=== PATIENT | female | born 1950 | race Caucasian/White ===

== ENCOUNTER → 2019-04-14 13:46 | Outpatient (CLI) | payer OTHER, SELFPAY ==
--- NOTE | 2019-04-14 13:54 | BD_ITS ---
STUDY: DUAL ENERGY X-RAY ABSORPTIOMETRY / DXA REASON FOR EXAM: Female, 68 years old. 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 COMPARISON: None. FINDINGS: Lumbar Spine (L1-L4): g/cm2 (0.860) / T-score (-2.7) / Z-score (-1.1) Findings are suggestive of osteoporosis with a high fracture risk. Left Femur Total: g/cm2 (0.759) / T-score (-2.0) / Z-score (-0.7) Left Femoral Neck: g/cm2 (0.780) / T-score (-1.9) / Z-score (-0.3) Right Femur Total: g/cm2 (0.773) / T-score (-1.9) / Z-score (-0.6) Right Femoral Neck: g/cm2 (0.751) / T-score (-2.1) / Z-score (-0.5) BD/Dexa Bone Density Study IMPRESSION: The patient is considered osteoporotic as outlined below according to World Richard Organization (WHO) criteria with a high fracture risk. Reference Information: The T-score is the number of standard deviations above or below the standard which is normal for young adults at their peak bone mineral density. The World Health Organization (WHO) interprets the T-scores as follows: Above -1 Normal bone density Between -1 and -2.5 Osteopenia Equal to / or below -2.5 Osteoporosis As a practical clinical guideline, osteopenia may be graded as follows: Mild -1 through -1.5 Moderate -1.6 through -2.0 Severe -2.1 through -2.4 The Z-score is the number of standard deviations above or below age-matched controls. A Z-score of less than -1.5 would be considered abnormal. References: 1. NIH Osteoporosis and Related Bone Diseases http://www.osteo.org 2. International Society for Clinical Densitometry http://www.iscd.org 3. National Osteoporosis Foundation http://www.nof.org Electronically Signed: Roman Jerome, at 15:06 EST , Service support ,
== END ==
PROVIDERS: PCP Internal Medicine; Referring Provider Internal Medicine; Visit Provider Internal Medicine
DX: Z78.0 Asymptomatic menopausal state (principal); M81.0 Age-related osteoporosis without current pathological fracture
CPT/HCPCS: 77080

== ENCOUNTER 2020-05-11 14:46 | Outpatient (RCR) | payer MEDICARE, SELFPAY | END 2020-05-11 23:59 | LOC: IMMUN 14:46 | PROVIDERS: PCP Internal Medicine; Visit Provider Family Medicine | DX: Z23 Encounter for immunization (principal) | CPT/HCPCS: 0011A; 0012A; 91301 ==

== ENCOUNTER → 2020-05-26 11:02 | Outpatient (CLI) | payer MEDICARE, OTHER, SELFPAY ==
--- NOTE | 2020-05-26 11:04 | CDU_ITS ---
Reason For Study: Bilateral carotid bruits Rt. Velocities/BP Lt. Velocities/BP Prox CCA 83.9/21.3 cm/sec. Prox CCA 90/23.7 cm/sec. Mid CCA 79.9/20 cm/sec. Mid CCA 74.1/15.1 cm/sec. Dist CCA 77.3/18.6 cm/sec. Dist CCA 76.5/18.8 cm/sec. Prox ICA 42.1/10.2 cm/sec. Prox ICA 59.3/13.9 cm/sec. Mid ICA 72.8/24.5 cm/sec. Mid ICA 75.3/22.5 cm/sec. Dist ICA 68.4/20.1 cm/sec. Dist ICA 85.1/24.9 cm/sec. Rt. ICA/CCA = 0.9. Lt. ICA/CCA = 1.11. Prox ECA 94.3/13.4 cm/sec. Prox ECA 87.6/11.4 cm/sec. Rt. Vert. 50.9/6.4 cm/sec. Lt. Vert. 40.9/11.6 cm/sec. Right Extracranial There is intimal thickening but no significant atherosclerotic plaque noted in the right common carotid artery. There is intimal thickening but no significant atherosclerotic plaque noted in the right internal carotid artery. There is intimal thickening but no significant atherosclerotic plaque noted in the right external carotid artery. Antegrade flow is noted in the right vertebral artery. Left Extracranial There is intimal thickening but no significant atherosclerotic plaque noted in the left common carotid artery. There is intimal thickening but no significant atherosclerotic plaque noted in the left internal carotid artery. There is intimal thickening but no significant atherosclerotic plaque noted in the left external carotid artery. Antegrade flow is noted in the left vertebral artery. Procedure Carotid Duplex [id number]. This is a Carotid Duplex examination using B-mode, color flow and specral Doppler. Exam performed in department. Interpretation Summary Intimal thickening right proximal internal carotid artery with less than 50% stenosis Less than 50% stenosis right external carotid artery Intimal thickening left proximal internal carotid artery with less than 50% stenosis Less than 50% stenosis left external carotid artery Patent and antegrade vertebrals bilaterally No change from the previous examination of February 08, 2014 Ordering Physician: Cassidy De Referring Physician: Cassidy De Performed By: Margot Martines RVT
== END ==
LOC: OPBI 11:03 → CVS 11:03
PROVIDERS: PCP Internal Medicine; Referring Provider Internal Medicine; Visit Provider Internal Medicine
DX: Z12.31 Encounter for screening mammogram for malignant neoplasm of breast (principal); R09.89 Other specified symptoms and signs involving the circulatory and respiratory systems
CPT/HCPCS: 93880

== ENCOUNTER → 2020-07-11 10:37 | Outpatient (CLI) | payer MEDICARE, OTHER, SELFPAY ==
--- NOTE | 2020-07-11 10:38 | BI_ITS ---
MAMMOGRAPHY - BILATERAL SCREENING REASON FOR EXAM: Female, 69 years old. Routine annual screening examination. PERTINENT HISTORY: Non-contributory. TECHNIQUE: Digital bilateral breast leland (3D mammographic acquisition) in the CC and MLO projections. 2-D mediolateral oblique (MLO) and craniocaudad (CC) views of both breasts were obtained. CAD: Full Field Digital Mammography with Computer Added Detection was performed. COMPARISON: Comparison is made with prior outside examination dated 12/10/2017. FINDINGS: Breast Composition: The breasts are heterogeneously dense, which may obscure small masses. There are no dominant masses or suspicious calcifications. No other significant abnormalities are identified. There has been no significant change since the prior study. BI/SCRN MAMM (CAD)W/LELAND BILAT IMPRESSION: Stable bilateral screening mammogram. Yearly follow-up mammogram recommended. (A) ASSESSMENT CATEGORY: BIRADS Category 1: Negative. A letter regarding these results will be sent to the patient by the facility within 30 days. Approximately 10% of breast cancers are not detected by mammography. A normal mammogram should not delay biopsy of a clinically suspicious abnormality. [id number] Electronically Signed: Roman Jerome MD at 13:05 EDT , Service support ,
== END ==
PROVIDERS: PCP Internal Medicine; Visit Provider Internal Medicine
DX: Z12.31 Encounter for screening mammogram for malignant neoplasm of breast (principal)
CPT/HCPCS: 77063; 77067

== ENCOUNTER → 2021-07-13 | Outpatient (CLI) | payer MEDICARE, OTHER, SELFPAY ==
--- NOTE | 2021-07-13 12:48 | BI_ITS ---
MAMMOGRAPHY - BILATERAL SCREENING REASON FOR EXAM: Female, 70 years old. Routine annual screening examination. PERTINENT HISTORY: Non-contributory. TECHNIQUE: Digital bilateral breast leland (3D mammographic acquisition) in the CC and MLO projections. 2-D mediolateral oblique (MLO) and craniocaudad (CC) views of both breasts were obtained. CAD: Full Field Digital Mammography with Computer Added Detection was performed. COMPARISON: Comparison is made with prior study dated 07/11/2020. FINDINGS: Breast Composition: The breasts are heterogeneously dense, which may obscure small masses. There are no dominant masses or suspicious calcifications. Stable scattered calcifications. No other significant abnormalities are identified. There has been no significant change since the prior study. BI/SCRN MAMM (CAD)W/LELAND BILAT IMPRESSION: Stable bilateral screening mammogram. Yearly follow-up mammogram recommended. (A) ASSESSMENT CATEGORY: BIRADS Category 2: Benign. A letter regarding these results will be sent to the patient by the facility within 30 days. Approximately 10% of breast cancers are not detected by mammography. A normal mammogram should not delay biopsy of a clinically suspicious abnormality. [id number] Electronically Signed: Roman Jerome MD at 14:03 EDT ,
== END | disposition home or self-care (01) ==
LOC: OPBD 12:44
PROVIDERS: PCP Internal Medicine; Visit Provider Internal Medicine
DX: Z12.31 Encounter for screening mammogram for malignant neoplasm of breast (principal)
CPT/HCPCS: 77063; 77067

== ENCOUNTER → 2021-07-18 | Outpatient (CLI) | payer MEDICARE, OTHER, SELFPAY ==
--- NOTE | 2021-07-18 09:06 | BD_ITS ---
STUDY: DUAL ENERGY X-RAY ABSORPTIOMETRY / DXA REASON FOR EXAM: Female, 70 years old. SEE ATTACHED TECHNIQUE: Bone Mineral Density (BMD) measurements of lumbar spine and bilateral hips were obtained. COMPARISON: Comparison is made with prior study of 04/14/2019. FINDINGS: Lumbar Spine (L1-L4): g/cm2 (0.752) / T-score (-2.7) / Z-score (-0.7) Findings are suggestive of osteoporosis with a high fracture risk. Left Femur Total: g/cm2 (0.693) / T-score (-2.0) / Z-score (-0.6) Left Femoral Neck: g/cm2 (0.629) / T-score (-2.0) / Z-score (-0.3) Right Femur Total: g/cm2 (0.690) / T-score (-2.1) / Z-score (-0.6) Right Femoral Neck: g/cm2 (0.601) / T-score (-2.2) / Z-score (-0.5) The T-Scores on the most recent prior examination were: Lumbar Spine (L1-L4): There has been improvement of bone density since the previous examination. Left Femur Total: which represents a worsening of 1%. Right Femur Total: which represents a worsening of 3.3%. BD/Dexa Bone Density Study IMPRESSION: The patient is considered osteoporotic as outlined below according to World Richard Organization (WHO) criteria with a high fracture risk. There has been worsening of bone density since the previous examination. Reference Information: The T-score is the number of standard deviations above or below the standard which is normal for young adults at their peak bone mineral density. The World Health Organization (WHO) interprets the T-scores as follows: Above -1 Normal bone density Between -1 and -2.5 Osteopenia Equal to / or below -2.5 Osteoporosis As a practical clinical guideline, osteopenia may be graded as follows: Mild -1 through -1.5 Moderate -1.6 through -2.0 Severe -2.1 through -2.4 The Z-score is the number of standard deviations above or below age-matched controls. A Z-score of less than -1.5 would be considered abnormal. References: 1. NIH Osteoporosis and Related Bone Diseases www osteo.org 2. International Society for Clinical Densitometry www iscd.org 3. National Osteoporosis Foundation www nof.org Electronically Signed: Roman Jerome MD at 13:35 EDT ,
== END | disposition home or self-care (01) ==
LOC: OPBD 09:19
PROVIDERS: PCP Internal Medicine; Referring Provider Internal Medicine; Visit Provider Internal Medicine
DX: Z12.31 Encounter for screening mammogram for malignant neoplasm of breast (principal); Z78.0 Asymptomatic menopausal state
CPT/HCPCS: 77080

== ENCOUNTER → 2022-07-16 | Outpatient (CLI) | payer MEDICARE, OTHER, SELFPAY ==
--- NOTE | 2022-07-16 09:49 | BI_ITS ---
MAMMOGRAPHY - BILATERAL SCREENING REASON FOR EXAM: Female, 71 years old. Routine annual screening examination. PERTINENT HISTORY: Non-contributory. TECHNIQUE: Digital bilateral breast leland (3D mammographic acquisition) in the CC and MLO projections. 2-D mediolateral oblique (MLO) and craniocaudad (CC) views of both breasts were obtained. CAD: Full Field Digital Mammography with Computer Added Detection was performed. COMPARISON: Comparison is made with prior examination July 13, 2021 and July 11, 2020. FINDINGS: Breast Composition: The breasts are heterogeneously dense, which may obscure small masses. There are no dominant masses or suspicious calcifications. No other significant abnormalities are identified. There has been no significant change since the prior study. BI/SCRN MAMM (CAD)W/LELNAD BILAT IMPRESSION: Stable bilateral screening mammogram. Yearly follow-up mammogram recommended. (A) ASSESSMENT CATEGORY: BIRADS Category 1: Negative. A letter regarding these results will be sent to the patient by the facility within 30 days. Approximately 10% of breast cancers are not detected by mammography. A normal mammogram should not delay biopsy of a clinically suspicious abnormality. [id number] Electronically Signed: Roman Jerome MD at 10:37 EDT ,
== END | disposition home or self-care (01) ==
LOC: OPBI 09:46
PROVIDERS: PCP Internal Medicine; Referring Provider Internal Medicine; Visit Provider Internal Medicine
DX: Z12.31 Encounter for screening mammogram for malignant neoplasm of breast (principal)
CPT/HCPCS: 77063; 77067

== ENCOUNTER → 2023-07-23 | Outpatient (CLI) | payer MEDICARE, OTHER, SELFPAY ==
--- NOTE | 2023-07-23 12:08 | BI_ITS ---
MAMMOGRAPHY - BILATERAL SCREENING REASON FOR EXAM: Female, 72 years old. Routine annual screening examination. PERTINENT HISTORY: Non-contributory. TECHNIQUE: Digital bilateral breast leland (3D mammographic acquisition) in the CC and MLO projections. 2-D mediolateral oblique (MLO) and craniocaudad (CC) views of both breasts were obtained. CAD: Full Field Digital Mammography with Computer Added Detection was performed. COMPARISON: Comparison is made with prior study July 16, 2022 and July 13, 2021. FINDINGS: Breast Composition: The breasts are heterogeneously dense, which may obscure small masses. There are no dominant masses or suspicious calcifications. No other significant abnormalities are identified. There has been no significant change since the prior study. BI/SCRN MAMM (CAD)W/LELAND BILAT IMPRESSION: Stable bilateral screening mammogram. Yearly follow-up mammogram recommended. (A) ASSESSMENT CATEGORY: BIRADS Category 1: Negative. A letter regarding these results will be sent to the patient by the facility within 30 days. Approximately 10% of breast cancers are not detected by mammography. A normal mammogram should not delay biopsy of a clinically suspicious abnormality. [id number] Electronically Signed: Roman Jerome MD at 13:23 EDT ,
== END | disposition home or self-care (01) ==
LOC: OPBI 12:08
PROVIDERS: PCP Internal Medicine; Referring Provider Internal Medicine; Visit Provider Internal Medicine
DX: Z12.31 Encounter for screening mammogram for malignant neoplasm of breast (principal)
CPT/HCPCS: 77063; 77067

== ENCOUNTER → 2023-10-08 | Outpatient (CLI) | payer MEDICARE, OTHER, SELFPAY ==
--- NOTE | 2023-10-08 10:06 | CDU_ITS ---
Reason For Study: bruit Rt. Velocities/BP Lt. Velocities/BP Prox CCA 74.0/10.7 cm/sec. Prox CCA 81.5/21.1 cm/sec. Mid CCA 77.8/17.3 cm/sec. Mid CCA 80.6/22.0 cm/sec. Dist CCA 74.0/23.0 cm/sec. Dist CCA 73.0/22.0 cm/sec. Prox ICA 61.7/21.1 cm/sec. Prox ICA 64.5/23.0 cm/sec. Mid ICA 79.6/23.9 cm/sec. Mid ICA 74.9/21.1 cm/sec. Dist ICA 71.1/25.8 cm/sec. Dist ICA 92.7/28.9 cm/sec. Rt. ICA/CCA = 1.0. Lt. ICA/CCA = 1.1. Prox ECA 85.3/9.7 cm/sec. Prox ECA 69.2/10.7 cm/sec. Rt. Vert. 50.7/8.0 cm/sec. Lt. Vert. 59.7/14.6 cm/sec. Right Extracranial There is intimal thickening but no significant atherosclerotic plaque noted in the right common carotid artery. There is intimal thickening but no significant atherosclerotic plaque noted in the right internal carotid artery. There is intimal thickening but no significant atherosclerotic plaque noted in the right external carotid artery. Antegrade flow is noted in the right vertebral artery. Left Extracranial There is intimal thickening but no significant atherosclerotic plaque noted in the left common carotid artery. There is intimal thickening but no significant atherosclerotic plaque noted in the left internal carotid artery. There is intimal thickening but no significant atherosclerotic plaque noted in the left external carotid artery. Antegrade flow is noted in the left vertebral artery. Procedure Carotid Duplex [id number]. This is a Carotid Duplex examination using B-mode, color flow and specral Doppler. The exam was diagnostic. Exam performed in department. VL/Carotid Duplex Ultrasound Interpretation Summary Normal right extracranial internal carotid. Normal left extracranial internal carotid. Patent and antegrade vertebrals bilaterally. Ordering Physician: Cassidy De Referring Physician: Cassidy De Performed By: Winston Carlton RVT
--- NOTE | 2023-10-08 10:07 | CT_ITS ---
EXAM: CT Abdomen And Pelvis W/ Contrast Injection HISTORY: ABD DISTENSION TECHNIQUE: Routine protocol CT abdomen pelvis. IV Contrast: Oral and amp; IV Gastrografin and amp; 100mL Isovue-370 . Oral Contrast: with. Sagittal and coronal images were reconstructed. RADIATION DOSAGE (If Supplied By Facility): CTDIvol = ( 13.59 ) mGy, DLP = ( 344.98 ) mGycm Individualized dose optimization techniques were used for this CT. COMPARISON: None. LIMITATIONS: None. FINDINGS: LOWER CHEST: Reticular opacities in the lung bases likely scarring. LIVER: Unremarkable. GALLBLADDER/BILE DUCTS: Unremarkable. PANCREAS: Unremarkable. SPLEEN: Unremarkable. ADRENAL GLANDS: Unremarkable. KIDNEYS / URETERS: Unremarkable. BOWEL / MESENTERY: Unremarkable. No bowel obstruction. Moderate amount of stool throughout the colon. APPENDIX: Identified and normal. No evidence of acute appendicitis. PERITONEUM: No free air. No free fluid. VESSELS: Abdominal aorta is normal caliber. RETROPERITONEUM: Unremarkable. REPRODUCTIVE ORGANS: Unremarkable. BLADDER: Unremarkable. ABDOMINAL WALL: Unremarkable. BONES: No acute abnormality. Degenerative changes lumbar spine with minimal anterolisthesis at L3-4. OTHER: None. CT/Abdomen/Pelvis WITH Contrast IMPRESSION: No acute findings. No bowel obstruction. Electronically Signed: Jossy Alcala MD at 2:16 EDT ,
[2023-10-08 12:41] LABS: CREATININE FINGERSTICK < 1.0 mg/dL (0.55-1.02); EGFR FINGERSTICK > 60.0000 mL/min (>60)
== END | disposition home or self-care (01) ==
LOC: OPBD 10:01 → CVS 10:03
PROVIDERS: PCP Internal Medicine; Referring Provider Internal Medicine; Visit Provider Internal Medicine
DX: Z01.812 Encounter for preprocedural laboratory examination (principal); R14.0 Abdominal distension (gaseous); R09.89 Other specified symptoms and signs involving the circulatory and respiratory systems; Z78.0 Asymptomatic menopausal state
CPT/HCPCS: 74177; 93880; Q9967

== ENCOUNTER → 2023-10-09 | Outpatient (CLI) | payer MEDICARE, OTHER, SELFPAY ==
--- NOTE | 2023-10-09 16:05 | BD_ITS ---
STUDY: DUAL ENERGY X-RAY ABSORPTIOMETRY / DXA REASON FOR EXAM: Female, 72 years old. [id number] TECHNIQUE: Bone Mineral Density (BMD) measurements of right forearm and bilateral hips were obtained. COMPARISON: Comparison is made with prior study of July 18, 2021. FINDINGS: Left Femur Total: g/cm2 (0.678) / T-score (-2.2) / Z-score (-0.6) Left Femoral Neck: g/cm2 (0.540) / T-score (-2.8) / Z-score (-0.9) Right Femur Total: g/cm2 (0.666) / T-score (-2.3) / Z-score (-0.7) Right Femoral Neck: g/cm2 (0.545) / T-score (-2.7) / Z-score (-0.9) The T-Scores on the most recent prior examination were: Left Femur Total: which represents a worsening of 2.1%. Right Femur Total: which represents a worsening of 3.5%. BD/Dexa Bone Density Study IMPRESSION: The patient is considered osteoporotic as outlined below according to World Richard Organization (WHO) criteria with a high fracture risk. There has been worsening of bone density since the previous examination. Reference Information: The T-score is the number of standard deviations above or below the standard which is normal for young adults at their peak bone mineral density. The World Health Organization (WHO) interprets the T-scores as follows: Above -1 Normal bone density Between -1 and -2.5 Osteopenia Equal to / or below -2.5 Osteoporosis As a practical clinical guideline, osteopenia may be graded as follows: Mild -1 through -1.5 Moderate -1.6 through -2.0 Severe -2.1 through -2.4 The Z-score is the number of standard deviations above or below age-matched controls. A Z-score of less than -1.5 would be considered abnormal. References: 1. NIH Osteoporosis and Related Bone Diseases www osteo.org 2. International Society for Clinical Densitometry www iscd.org 3. National Osteoporosis Foundation www nof.org Electronically Signed: Roman Jerome MD at 10:13 EDT ,
== END | disposition home or self-care (01) ==
LOC: OPBD 16:01
PROVIDERS: PCP Internal Medicine; Referring Provider Internal Medicine; Visit Provider Internal Medicine
DX: R14.0 Abdominal distension (gaseous) (principal); R09.89 Other specified symptoms and signs involving the circulatory and respiratory systems; Z78.0 Asymptomatic menopausal state
CPT/HCPCS: 77080

== ENCOUNTER 2024-01-19 00:50 | Emergency (ER) | payer MEDICARE, OTHER, SELFPAY ==
[2024-01-19 00:51] VITALS: BP 116/58; PULSE 84; RESP 16; TEMP 37; O2SAT 97; BMI 24.1
[2024-01-19] MEDS: Ondansetron 4 MG/2 ML Vial IV (01:12)
[2024-01-19] MEDS: Gabapentin 300 MG Capsule PO (01:13)
[2024-01-19] MEDS: diazePAM 5 MG Tablet PO (01:13)
[2024-01-19] MEDS: Morphine 4 MG/ML Syringe IV (01:14)
[2024-01-19 01:49] LABS: Anion Gap 5 (5-15); BUN 26 mg/dL (7-18); CPK Total, Creatine Kinase 41 U/L (26-192); Calcium,Total 8.9 mg/dL (8.5-10.1); Chloride 109 mmol/L (98-107); Creatinine, Serum 0.64 mg/dL (0.55-1.02); Estimated Creatinine Clearance 52.79 ml/min; Glucose 111 mg/dL (74-106); Magnesium 2.2 mg/dL (1.6-2.6); Potassium 3.6 mmol/L (3.5-5.1); Sodium Level 142 mmol/L (136-145)
[2024-01-19 01:50] VITALS: BP 111/52; PULSE 78; RESP 18; O2SAT 95
[2024-01-19 02:00] LABS: BUN/Creat Ratio 40.8 RATIO (10-20); EST Glomerular Filtration Rate 98 mL/min (>60); Est Glom Filt Rate - Afr Amer 118 mL/min (>60)
--- NOTE | 2024-01-19 02:20 | EDS_ITS ---
HPI History of Present Illness Chief Complaint: General Illness Informant: patient and spouse/S.O. Narrative Narrative: Patient is a 73-year-old female with history of osteoporosis. She states that her family doctor has been trying to place her on a bisphosphonate for multiple years but she has refused to take 1 until recently. She states she took her first dose of Boniva on Saturday evening. She states she awoke Saturday night into Saturday morning with back pain and severe muscle aches. She reports that there was no trauma or excessive activity. She states she has not had any sick symptoms. She denies any new exposure other than the recent Boniva medication. She states she dealt with the pain throughout the entire day Saturday but folic it was worsening instead of improving and therefore she comes in for evaluation. She denies any hematuria or dysuria she denies any loss of bowel or bladder control or IV drug use or recent surgical procedure [facility] Medical History (Updated 01/19/24 @ 04:[address] Moises Roberts, DO) Osteoporosis Home Medications ?Medication ?Instructions ?Recorded ?Last Taken ?Type diazepam 5 mg tablet (Valium) 5 mg PO TID PRN muscle spasm/pain 01/19/24 Unknown Rx #15 tabs gabapentin 300 mg capsule 300 mg PO TID 14 days #42 caps 01/19/24 Unknown Rx oxycodone-acetaminophen 5 mg-325 1 tab PO Q6H PRN pain 3 days #12 01/19/24 Unknown Rx mg tablet (Percocet) tabs Allergy/AdvReac Type Severity Reaction Status Date / Time No Known Allergies Allergy Verified 01/19/24 00:58 Social History Smoking Status: Never smoker [facility] ED Constitutional Constitutional ED: Denies chills or fever(s) ENT ENT ED: Denies sore throat Cardiovascular Cardiovascular: Denies chest pain Respiratory/Chest Respiratory/Chest: Denies cough or dyspnea Gastrointestinal Gastrointestinal: Denies abdominal pain, diarrhea, nausea or vomiting Genitourinary Genitourinary ED: Denies dysuria or hematuria Musculoskeletal Musculoskeletal: Reports back pain and myalgias Integumentary Denies rash Neurologic Neurologic: Denies headache(s) or paresthesias Hematologic/Lymphatic Hematologic/Lymphatic: Denies easy bleeding or easy bruising EXAM Physical Exam Const Vital Signs: 01/19/24 00:51 01/19/24 01:50 EST 01/19/24 02:32 Temperature 98.6 F 97.6 F L Temperature Source Oral Pulse Rate 84 78 77 Respiratory Rate 16 18 18 Blood Pressure 116/58 L 111/52 L 111/52 L Blood Pressure Mean 77 71 71 Pulse Ox 97 95 95 Oxygen Delivery Method Room Air Room Air Positive well nourished and well developed General Appearance ED: well developed; Negative for pallor HEENT HEENT Narrative: Normocephalic atraumatic Eyes PERRL and EOMs intact bilaterally General Eye ED: Negative for scleral icterus Neck supple Neck Narrative: No nuchal rigidity or meningeal signs Chest Wall palpation of chest normal Resp normal respiratory effort and clear to auscultation bilaterally Cardio regular rate and regular rhythm Rate: other Other Details: Regular rate and rhythm without murmurs rubs or gallop Radial and carotid pulses are equal and symmetric GI normal to inspection, nondistended, normoactive bowel sounds, non-tender, non- distended and no masses GI Narrative: No voluntary guarding or rigidity or pulsatile mass Auscultation: normoactive bowel sounds Palpation: soft Back/Spine Back/Spine Narrative: No bony deformity or step-off of the thoracic or lumbar spine but there is diffuse pain with palpation of the upper and lower back No saddle anesthesia. Negative straight leg raise. No clonus or Babinski. Patellar reflexes are plus 1 out of 4 bilaterally Extremity normal to inspection Extremity Narrative: No obvious bony deformity or joint effusion Neuro oriented x3, CN's II-XII intact bilaterally and no sensory deficits noted Sensorium / Orientation: alert Psych mental status grossly normal Skin no rashes or lesions noted and no wounds General Skin Exam: Negative for jaundice or pallor MDM MDM MDM Narrative Medical decision making narrative: Patient arrived to the ER with stable vitals. She reported generalized pain without history of trauma or sick symptoms and only new exposure of the Boniva medication. Chart review reveals that a large percentage of patients taking the medication can experience myalgias and back pain or rib pain. As she is not had recent injections or surgical procedures my concern for discitis or osteomyelitis is low. She denied loss of bowel bladder control or IV drug use going against cauda equina or epidural abscess. Boniva can lead to hypocalcemia or her symptoms could be potentially from rhabdomyolysis so basic labs were obtained. Patient's electrolytes were within normal limits her CK level was also normal going against rhabdomyolysis. She denied dysuria or hematuria or frequency and therefore I felt low concern for UTI or pyelonephritis and felt no need for a urine sample. The patient was given morphine Zofran value and gabapentin. On reevaluation she reports resolution of her pain. As the half- life of Boniva is anywhere from 1 to 7 days based on chart review patient will most likely have persistent symptoms for another few days. Therefore she will be prescribed oral medication to help control the adverse drug event but without infectious changes or signs of trauma or neurovascular event or rhabdomyolysis there is no need for further workup and she is otherwise safe for discharge History & Record Review Discussion w/independent historian: Patient and Significant other Lab Data Attestation: I reviewed the patient's lab results. Labs: Laboratory Results - last 24 hr 01/19/24 00:25 Sodium 142 Potassium 3.6 Chloride 109 H Carbon Dioxide 28.0 Anion Gap 5 BUN 26 H Creatinine 0.64 Estim Creat Clear Calc 52.79 Est GFR (MDRD) Af Amer 118 Est GFR (MDRD) Non-Af 98 BUN/Creatinine Ratio 40.8 H Glucose 111 H Calcium 8.9 Magnesium 2.2 Total Creatine Kinase 41 Discharge Plan Triage Chief Complaint: General Illness ED Provider: Moises Roberts Dx/Rx/DC Orders Clinical Impression: Myalgia, Adverse drug effect, Osteoporosis Instructions: ED Drug Reaction, Other, ED Myalgias Prescriptions: New oxycodone-acetaminophen [Percocet] 5-325 mg tablet 1 tab PO Q6H PRN (Reason: pain) 3 Days Qty: 12 0RF diazepam [Valium] 5 mg tablet 5 mg PO TID PRN (Reason: muscle spasm/pain) Qty: 15 0RF gabapentin 300 mg capsule 300 mg PO TID 14 Days Qty: 42 0RF Primary Care Provider: Cassidy De Referrals: Cassidy De DO [Primary Care Provider] - Print Language: [place] Disposition Disposition: Home, Self Care Discharge Date/Time: 01/19/24 02:33
[2024-01-19 02:32] VITALS: BP 111/52; PULSE 77; RESP 18; TEMP 36.4; O2SAT 95
== END 2024-01-19 02:33 | disposition home or self-care (01) ==
PROVIDERS: Emergency Provider Emergency Medicine; PCP Internal Medicine; Visit Provider Emergency Medicine
DX: M79.10 Myalgia, unspecified site (principal); M54.9 Dorsalgia, unspecified; T50.995A Adverse effect of other drugs, medicaments and biological substances, initial encounter; M81.0 Age-related osteoporosis without current pathological fracture; Z79.899 Other long term (current) drug therapy
CPT/HCPCS: 80048; 82550; 83735; 99285

== ENCOUNTER → 2024-07-24 | Outpatient (CLI) | payer MEDICARE, OTHER, SELFPAY ==
--- NOTE | 2024-07-24 10:08 | BI_ITS ---
EXAM: SCRN MAMM (CAD)W/[place] BILAT 07/24/2024 CLINICAL HISTORY: F, Age 73 y/o , BILATERAL SCREENING MAMMO TECHNIQUE: Bilateral screening digital breast tomosynthesis with 2D and 3D images. Computer aided detection. COMPARISON: Prior exam(s) dated 07/23/2023, 07/16/2022, 07/05/2021. FINDINGS: TISSUE DENSITY: The breast tissue is heterogenously dense, which may obscure small masses. The mammogram demonstrates that the patient has dense breasts. Supplemental screening with whole breast ultrasound or MRI may be considered for further evaluation. Bilateral Breast Mammographic Findings: No significant masses, calcifications or other abnormalities are identified. BI/SCRN MAMM (CAD)W/[place] BILAT IMPRESSION: Right Breast: BIRADS 1 NEGATIVE. Left Breast: BIRADS 1 NEGATIVE. OVERALL FINAL ASSESSMENT: BIRADS 1 NEGATIVE. RECOMMENDATION: Routine annual follow-up in 1 Year A letter with findings and recommendations will be mailed to the patient. Reading Location: [id number]
== END | disposition home or self-care (01) ==
LOC: OPBI 10:06
PROVIDERS: PCP Internal Medicine; Referring Provider Internal Medicine; Visit Provider Internal Medicine
DX: Z12.31 Encounter for screening mammogram for malignant neoplasm of breast (principal)
CPT/HCPCS: 77063; 77067